=== PATIENT | male | born 1975 | race Caucasian/White ===

== ENCOUNTER 2016-07-17 18:06 | Emergency (ER) | payer SELFPAY ==
[2016-07-17] MEDS ORDERED: LIDOCAINE 2% VISC 15 ML UDC ONE (19:48)
== END 2016-07-17 20:15 | disposition home or self-care (01) ==
LOC: ER 18:06
DX: K02.9 Dental caries, unspecified (principal); F17.210 Nicotine dependence, cigarettes, uncomplicated